=== PATIENT | male | born 2000 | race Caucasian/White ===

== ENCOUNTER 2021-04-27 16:04 | Emergency (ER) | payer OTHER ==
[~2021-04-27] VITALS: Ht 177.8 cm; Wt 72.6 kg
[2021-04-27] MEDS ORDERED: Amoxicillin500 MG PO (16:14)
[2021-04-27] MEDS ORDERED: HYDR1TAB94 PO (16:14)
== END 2021-04-27 16:15 | disposition home or self-care (01) ==
LOC: ER 16:04
DX: K04.7 Periapical abscess without sinus (principal)
CPT/HCPCS: 99282

== ENCOUNTER 2021-09-03 10:48 | Emergency (ER) | payer OTHER ==
[~2021-09-03] VITALS: Ht 177.8 cm; Wt 79.4 kg
[~2021-09-03 10:48] MED LIST: Amoxicillin500 MG PO; HYDR1TAB94 PO
[2021-09-03 12:21] LABS: Influenza A, PCR NEGATIVE (NEGATIVE); Influenza B, PCR NEGATIVE (NEGATIVE); Resp Syncytial Virus, PCR NEGATIVE (NEGATIVE)
[2021-09-03 12:41] LABS: SARS-Cov-2 (COVID-19) PCR, MMC POSITIVE (NEGATIVE)
== END 2021-09-03 13:29 | disposition home or self-care (01) ==
LOC: ER 10:48
PROVIDERS: Physician Assistant
DX: U07.1 COVID-19 (principal); F17.200 Nicotine dependence, unspecified, uncomplicated
CPT/HCPCS: 0241U